=== PATIENT | female | born 1990 | race Caucasian/White ===

== ENCOUNTER 2023-05-15 13:48 | Day surgery (SDC) | payer MEDICAID ==
[2023-05-15 14:05] VITALS: O2SAT 100
[2023-05-15] MEDS ORDERED: SODIUM CHLORIDE 0.9% 1,000 ML IV STA ×2 (14:08→16:04)
[2023-05-15] MEDS ORDERED: ONDANSETRON 4 MG/2 ML VIAL IVP STA (14:08)
--- NOTE | 2023-05-15 14:12 | ED Physician Documentation ---
PD HPI NVD - Stated complaint Stated Complaint: VOMITING - Chief complaint Chief Complaint: Abd Pain - History obtained from History obtained from: Patient - Additonal information Additional information: Patient is a 33-year-old female who is approximately 10 weeks (last menses was in February) presenting for evaluation of nausea and vomiting which has been worse since this morning. Patient states she has had morning sickness and has prescribed Zofran and Unisom which has not been helping. However today her nausea and vomiting have been much worse and she has left lower quadrant pain. She just moved here and thus has not established care with OB yet. She did have some morning sickness with her first but states it was not this bad.Denies complications with first . She denies vaginal bleeding or cramping. Denies eating anything yesterday or today though does upset her stomach. No diarrhea. No blood in emesis. States that is been mostly foamy and dry heaving. Patient does endorse regular cannabis use. Denies having had other symptoms similar to this other than in the setting of . Review of Systems Constitutional: denies: Fever Cardiac: denies: Chest pain / pressure Respiratory: denies: Dyspnea GI: reports: Abdominal Pain, Nausea, Vomiting. denies: Diarrhea, Bloody / black stool : denies: Dysuria PD PAST MEDICAL HISTORY - Past Medical History Past Medical History: Yes Psych: Depression, Anxiety - Past Surgical History Past Surgical History: No - Present Medications Home Medications: Ambulatory Orders Medication Instructions Recorded Confirmed Sertraline [Zoloft] 25 mg PO DAILY 05/15/23 05/15/23 lamoTRIgine [LaMICtal] 200 mg PO DAILY 05/15/23 05/15/23 - Allergies Allergies/Adverse Reactions: Allergies Allergy/AdvReac Type Severity Reaction Status Date / Time sulfamethoxazole AdvReac Nausea Verified 05/15/23 13:57 [From Bactrim] trimethoprim [From Bactrim] AdvReac Nausea Verified 05/15/23 13:57 - Social History Does the pt smoke?: No Smoking Status: Never smoker PD ED PE NORMAL - General General: Alert and oriented X 3, No acute distress, Well developed/nourished - HEENT HEENT: Atraumatic, Moist mucous membranes, Pharynx benign - Neck Neck: Supple, no meningeal sign - Cardiac Cardiac: RRR, No murmur - Respiratory Respiratory: No respiratory distress, Clear bilaterally - Abdomen Abdomen: Normal bowel sounds, Soft, Non tender, Non distended - Derm Derm: Warm and dry - Extremities Extremities: No edema - Neuro Neuro: Normal speech Results - Vitals Vitals: Vital Signs - 24 hr 05/15/23 05/15/23 05/15/23 13:55 13:57 16:42 Temperature 36.6 C 36.6 C Heart Rate 66 66 52 L Respiratory 16 16 16 Rate Blood Pressure 95/61 95/61 123/49 L O2 Saturation 100 100 100 Oxygen O2 Source Room air - Labs Labs: Laboratory Tests 05/15/23 05/15/23 05/15/23 14:22 14:22 14:22 WBC 15.6 H RBC 4.24 Hgb 12.9 Hct 36.7 L MCV 86.6 MCH 30.4 MCHC 35.1 RDW 12.9 Plt Count 402 MPV 9.9 Neut # (Auto) 12.8 H Lymph # (Auto) 1.9 Ada # (Auto) 0.7 Eos # (Auto) 0.1 Baso # (Auto) 0.1 Absolute Nucleated RBC 0.00 Nucleated RBC % 0.0 Sodium 137 Potassium 3.5 Chloride 106 Carbon Dioxide 19 L Anion Gap 12.0 BUN 9 Creatinine 0.7 Estimated GFR (MDRD) 96 Glucose 131 H Calcium 10.5 H Total Bilirubin 0.4 AST 12 ALT 15 Alkaline Phosphatase 74 Total Protein 7.7 Albumin 4.6 Globulin 3.1 Albumin/Globulin Ratio 1.5 Lipase 15 Beta HCG, Quant Urine Color Urine Clarity Urine pH Ur Specific [place] Urine Protein Urine Glucose (UA) Urine Ketones Urine Occult Blood Urine Nitrite Urine Bilirubin Urine Urobilinogen Ur Leukocyte Esterase Urine RBC Urine WBC Ur Squamous Epith Cells Urine Bacteria Urine Mucus Ur Microscopic Review Urine Culture Comments Blood Type A POSITIVE 05/15/23 05/15/23 14:22 15:02 WBC RBC Hgb Hct MCV MCH MCHC RDW Plt Count MPV Neut # (Auto) Lymph # (Auto) Ada # (Auto) Eos # (Auto) Baso # (Auto) Absolute Nucleated RBC Nucleated RBC % Sodium Potassium Chloride Carbon Dioxide Anion Gap BUN Creatinine Estimated GFR (MDRD) Glucose Calcium Total Bilirubin AST ALT Alkaline Phosphatase Total Protein Albumin Globulin Albumin/Globulin Ratio Lipase Beta HCG, Quant 85165.3 Urine Color YELLOW Urine Clarity CLOUDY Urine pH 6.5 Ur Specific [place] 1.025 Urine Protein NEGATIVE Urine Glucose (UA) NEGATIVE Urine Ketones >=80 H Urine Occult Blood NEGATIVE Urine Nitrite NEGATIVE Urine Bilirubin NEGATIVE Urine Urobilinogen 0.2 (NORMAL) Ur Leukocyte Esterase TRACE H Urine RBC 0-5 Urine WBC 6-10 H Ur Squamous Epith Cells MANY Squamous H Urine Bacteria Moderate H Urine Mucus Moderate Strands Ur Microscopic Review INDICATED Urine Culture Comments NOT INDICATED Blood Type PD Medical Decision Making - ED course Complexity details: reviewed results, re-evaluated patient, d/w patient, d/w behavioral consultant ED course: 1545 - D/W Dr. Laureano. She will see pt in ER. 1549 - Patient states that the Zofran did help her a little bit but the nausea has come back. I did review the results of her work-up including concerns for that is not progressing as expected and that OB is coming to speak with her regarding evaluation and options for treatment. 1605 - Patient has been seen by OB. Plan to take to the OR for D&C. Requesting order for scopolamine patch for patient's nausea/vomiting. Patient is a 33-year-old female G2, P1 presenting for evaluation of nausea and vomiting. Believes she is approximately 10 weeks . Her abdominal exam is benign. Labs including CBC, chemistries, hCG and blood type were obtained and reviewed. Urine analysis is negative for infection. Electrolytes are within normal limits. Leukocytosis of 15. Ultrasound was obtained which shows a intrauterine gestational sac with crown-rump length of approximately 6 weeks 6 days which does not correlate with her estimation To be 10 weeks along. There is additionally no heartbeat which is concerning for a nonviable . I did consult with OB who is evaluated the patient and plans to take her to the OR for a D&C. Patient received IV fluids and IV Zofran. Having continued nausea so was also given IV Reglan and scopolamine patch was ordered per request of OB. Patient was taken to preop by the OR team. Departure - Departure Disposition: ED Transfer to [facility] Clinical Impression: Missed , Intractable vomiting with nausea Condition: Stable
[2023-05-15 14:32] LABS: BASOPHILS # (AUTO) 0.1 10^3/uL (0.0-0.1); BASOPHILS % (AUTO) 0.4 %; EOSINOPHILS # (AUTO) 0.1 10^3/uL (0.0-0.7); EOSINOPHILS % (AUTO) 0.7 %; HCT - HEMATOCRIT 36.7 % (37.0-47.0); HGB - HEMOGLOBIN 12.9 g/dL (12.0-16.0); LYMPHOCYTES # (AUTO) 1.9 10^3/uL (1.5-3.5); LYMPHOCYTES % (AUTO) 12.5 %; MEAN CORPUSCULAR HEMOGLOBIN 30.4 pg (27.0-31.0); MEAN CORPUSCULAR HGB CONC 35.1 g/dL (32.0-36.0); MEAN CORPUSCULAR VOLUME 86.6 fL (81.0-99.0); MEAN PLATELET VOLUME 9.9 fL (7.9-10.8); MONOCYTES # (AUTO) 0.7 10^3/uL (0.0-1.0); MONOCYTES % (AUTO) 4.2 %; NEUTROPHILS # (AUTO) 12.8 10^3/uL (1.5-6.6); NEUTROPHILS % (AUTO) 81.9 %; PLT - PLATELET COUNT 402 10^3/uL (130-450); RED BLOOD COUNT 4.24 10^6/uL (4.20-5.40); RED CELL DISTRIBUTION WIDTH 12.9 % (12.0-15.0); WHITE BLOOD COUNT 15.6 x10^3/uL (4.8-10.8)
[2023-05-15 14:45] LABS: ALBUMIN 4.6 g/dL (3.2-5.5); ALBUMIN/GLOBULIN RATIO 1.5 (1.0-2.2); BILIRUBIN,TOTAL 0.4 mg/dL (0.2-1.0); CALCIUM 10.5 mg/dL (8.5-10.3); CREATININE 0.7 mg/dL (0.6-1.3); POTASSIUM 3.5 mmol/L (3.5-4.5); TOTAL PROTEIN 7.7 g/dL (6.4-8.9)
[2023-05-15 15:27] LABS: BILIRUBIN,URINE NEGATIVE (NEGATIVE); GLUCOSE, URINE (UA) NEGATIVE (NEGATIVE); KETONES,URINE (UA) >=80 mg/dL (NEGATIVE); LEUKOCYTE ESTERASE, URINE TRACE (NEGATIVE); NITRITE,URINE NEGATIVE (NEGATIVE); OCCULT BLOOD,URINE NEGATIVE (NEGATIVE); PH,URINE 6.5 PH (5.0-7.5); PROTEIN,URINE NEGATIVE (NEGATIVE); UROBILINOGEN,URINE 0.2 (NORMAL) E.U./dL (NORMAL)
--- NOTE | 2023-05-15 15:27 | Ultrasound Report ---
PROCEDURE: OB First Trimester INDICATIONS: vomiting/LLQ pain OUTSIDE/PRIOR DATING DATA: Last menstrual period (LMP): 03/08/2023. LMP-based estimated date of delivery (YORDAN): 12/13/2023. First dating scan (date and location): Today's exam. Estimated date of delivery (YORDAN) from first dating scan: 01/02/2024. TECHNIQUE: Real-time scanning was performed of the fetus and maternal pelvic organs, with image documentation. COMPARISON: None. FINDINGS: Intrauterine gestational sac present. Embryo: Present, measuring 8.3 mm. Heart rate: Absent. Other: No perigestational fluid collection. Measurement variability in dating: +/- 4 weeks by LMP, +/- 7 days by mean sac diameter (use before 6 weeks gestation if crown-rump length not able to be measured), +/- 5 days by crown-rump length (6-12 weeks gestation). Maternal organs: Ovaries appear within normal limits. IMPRESSION: Findings diagnostic of failure, with a crown-rump length of 8.3 mm and no heart tones . Reviewed by: Shawn Reynolds on 05/15/2023 3:25 PM PDT Approved by: Shawn Reynolds on 05/15/2023 3:25 PM PDT Station ID: [id number]
[2023-05-15 15:32] LABS: CLARITY,URINE CLOUDY (CLEAR)
[2023-05-15 15:44] LABS: BACTERIA,URINE Moderate /HPF (None Seen); MUCUS,URINE Moderate Strands; RBC,URINE 0-5 /HPF (0-5); SQUAMOUS EPITHELIAL CELL,UR MANY Squamous (<= Few)
[2023-05-15] MEDS ORDERED: METOCLOPRAMIDE 10 MG/2 ML VIAL IVP STA (15:49)
[2023-05-15] MEDS ORDERED: BUPIVACAINE 0.25% PF 30 ML VIAL ONE (16:32)
[2023-05-15] MEDS ORDERED: DOXYCYCLINE INJ 100 MG in SODIUM CHLORIDE 0.9% MINIBAG 100 ML IV STA (16:45)
[2023-05-15] MEDS ORDERED: MIDAZOLAM 2 MG/2 ML VIAL ONE (16:48)
[2023-05-15] MEDS ORDERED: PROPOFOL 200 MG/20 ML VIAL IVP ONE (16:48)
[2023-05-15] MEDS ORDERED: fentaNYL 100 MCG/2 ML VIAL ONE (16:48)
[2023-05-15] MEDS ORDERED: SUCCINYLCHOLINE 200 MG/10 ML VIAL ONE (16:48)
[2023-05-15] MEDS ORDERED: metroNIDAZOLE 500 MG/100 ML 500 MG/100 ML BAG ONE (16:49)
[2023-05-15] MEDS ORDERED: DOXYCYCLINE 100 MG TABLET PO ONE (16:49)
[2023-05-15] MEDS ORDERED: SCOPOLAMINE PATCH TOP ONE (16:59)
[2023-05-15] MEDS ORDERED: SCOPOLAMINE PATCH TOP SCH (17:00)
[2023-05-15] MEDS ORDERED: DEXAMETHASONE 4 MG/ML VIAL ONE (17:10)
--- NOTE | 2023-05-15 17:10 | ANESTHESIA ---
Pre-Anesthesia VS, & Labs - Diagnosis missed AB - Procedure suction d&C Vital Signs: Temp Pulse Resp BP Pulse Ox O2 Flow Rate 36.6 C 52 L 16 123/49 L 100 05/15/23 13:57 05/15/23 16:42 05/15/23 16:42 05/15/23 16:42 05/15/23 16:42 Height: 5 ft 2 in Weight (kg): 72.575 kg Body Mass Index: 29.2 BMI Classification: Overweight - NPO Last Fluid Intake: 1400 Last Food Intake: 1100 - Is Patient ?: Yes (missed ab) - Lab Results Current Lab Results: Laboratory Tests 05/15/23 14:22: Beta HCG, Quant 69921.3 05/15/23 14:22: Sodium 137, Potassium 3.5, Chloride 106, Carbon Dioxide 19 L, Anion Gap 12.0, BUN 9, Creatinine 0.7, Estimated GFR (MDRD) 96, Glucose 131 H, Calcium 10.5 H, Total Bilirubin 0.4, AST 12, ALT 15, Alkaline Phosphatase 74, Total Protein 7.7, Albumin 4.6, Globulin 3.1, Albumin/Globulin Ratio 1.5, Lipase 15 05/15/23 14:22: WBC 15.6 H, RBC 4.24, Hgb 12.9, Hct 36.7 L, MCV 86.6, MCH 30.4, MCHC 35.1, RDW 12.9, Plt Count 402, MPV 9.9, Neut # (Auto) 12.8 H, Lymph # (Auto) 1.9, [place] # (Auto) 0.7, Eos # (Auto) 0.1, Baso # (Auto) 0.1, Absolute Nucleated RBC 0.00, Nucleated RBC % 0.0 05/15/23 14:22: Blood Type A POSITIVE Lab results reviewed: Yes Fish Bones: 05/15/23 14:22 05/15/23 14:22 Home Medications and Allergies Home Medications: Ambulatory Orders Sertraline [Zoloft] 25 mg PO DAILY 05/15/23 lamoTRIgine [LaMICtal] 200 mg PO DAILY 05/15/23 Active Medications Sodium Chloride (Normal Saline 0.9%) 1,000 mls @ 150 mls/hr IV .Q6H40M STA Stop: 05/15/23 22:43 Last Admin: 05/15/23 16:41 Dose: 150 mls/hr Doxycycline Hyclate 100 mg/ (Sodium Chloride) 100 mls @ 100 mls/hr IV ONCE STA Stop: 05/15/23 17:44 Scopolamine HBr (Scopolamine Patch) 1 patch TOP Q3D MOLLY Sertraline [Zoloft] 25 mg PO DAILY 05/15/23 lamoTRIgine [LaMICtal] 200 mg PO DAILY 05/15/23 Allergies/Adverse Reactions: Allergies Allergy/AdvReac Type Severity Reaction Status Date / Time sulfamethoxazole AdvReac Nausea Verified 05/15/23 13:57 [From Bactrim] trimethoprim [From Bactrim] AdvReac Nausea Verified 05/15/23 13:57 Anes History & Medical History - Anesthetic History Anesthesia Complications: reports: No previous complications Family history of Anesthesia Complications: Denies Family history of Malignant Hyperthermia: Denies - Medical History Cardiovascular: reports: None Pulmonary: reports: None Gastrointestinal: reports: Other (N/V--severe) Urinary: reports: None Neuro: reports: None Musculoskeletal: reports: None Endocrine/Autoimmune: reports: None Blood Disorders: reports: None Skin: reports: None Smoking Status: Never smoker Psychosocial: reports: Cannabis, Other (bipolar) History of Cancer?: No - Surgical History Gynecologic: reports: Other (lap salpingectomy for ectopic preg) Orthopedic: reports: Other (right wrist) Exam General: Alert, Oriented x3, Cooperative, No acute distress Dental: WNL Mouth Openin Fingerbreadth Neck Mobility: Normal Mallampati classification: II Thyromental Distance: 4-6 cm Respiratory: Lungs clear, Normal breath sounds, No respiratory distress, No accessory muscle use Mental/Cognitive Status: Alert/Oriented X3, Normal for patient Plan Anesthesia Type: General Consent for Procedure(s) Verified and Reviewed: Yes Code Status: Attempt Resuscitation ASA classification: 2-Mild systemic disease Is this case an emergency?: Yes
[2023-05-15] MEDS ORDERED: LACTATED RINGERS 700 ML IV ONE (17:20)
--- NOTE | 2023-05-15 17:23 | OPERATIVE REPORT ---
Operative Report - General Procedure Date: 05/15/23 Planned Procedure: Suction D&C of uterus for missed ab Pre-Op Diagnosis: missed ab Procedure Performed: suction D&C, remove cervical polyp - Procedure Note Primary Surgeon: Amy Laureano Secondary Surgeon: non Anesthesia Provider: Jennifer Patel CRNA Anesthesia Technique: General ET tube Pathology: POC, cervical polyp Estimated Blood Loss (mL): 30 Urine Output (mL): 0 Indications: missed ab on uls noted. 6w6d size. vomiting. Findings: uterus about 10 cm with significant mobility, some cystocele. POC obtained. cervical polyp at os removed. Complications: none - Other Other Information/Narrative: patient was consented. Options discussed, can wait, take medication or do pr ocedure now. she wanted to get done with her miscarriage and nausea. She signed consents. she was brought to OR where general ETT anesthesia was given. she was prepped and draped in normal fashion. time out done. Bimanual exam done. cervix examined. small polyp removed with ring forceps. cervix grasped wtih ring forceps. dilated to allow passage of 8 mm suction currete. this was placed and suction turned on to green zone. uterus emptied with 3 separate passes. no sharp curettage done as uterus felt empty. massage done. Uterus was junior well and not bleeding. Tissue examined and appeared c/w POC. she was awakened and brought to PACU.
[2023-05-15] MEDS ORDERED: HYDROmorphone 0.5 MG/0.5 ML SYRINGE IVP PRN (17:27)
[2023-05-15] MEDS ORDERED: MORPHINE 2 MG/ML CARPUJECT IVP PRN (17:27)
[2023-05-15] MEDS ORDERED: ATROPINE ABBOJECT 1 MG/10 ML SYRINGE IVP PRN (17:27)
[2023-05-15] MEDS ORDERED: NALOXONE 0.4 MG/ML VIAL IVP PRN (17:27)
[2023-05-15] MEDS ORDERED: ONDANSETRON 4 MG/2 ML VIAL IVP PRN (17:27)
[2023-05-15] MEDS ORDERED: fentaNYL 100 MCG/2 ML VIAL IVP PRN (17:27)
[2023-05-15] MEDS ORDERED: oxyCODONE 5 MG TABLET PO PRN (17:29)
--- NOTE | 2023-05-15 17:44 | ANESTHESIA POST OP EVALUATION ---
Anesthesia Post Eval - Post Anesthesia Eval Vitals: Last Vital Signs Temp 36.0 C L 05/15/23 17:20 Pulse 96 05/15/23 17:35 Resp 18 05/15/23 17:35 BP 124/72 05/15/23 17:35 Pulse Ox 100 05/15/23 17:35 O2 Flow Rate CV Function Including HR & BP: Stable Pain Control: Satisfactory Nausea & Vomiting: Negative Mental Status: Baseline Respiratory Status: Airway Patent Hydration Status: Satisfactory Anesthesia Complications: None
[2023-05-15] MEDS ORDERED: LACTATED RINGERS 1,000 ML IV SCH (18:00)
[2023-05-17 07:49] VITALS: BP 114/76
--- NOTE | 2023-05-17 10:02 | PROVIDER PROGRESS NOTE ---
Subjective - Prog Note Date Prog Note Date: 05/17/23 Prog Note Time: 09:58 - Subjective Subjective: TC from patient from home. D&C on Thursday afternoon, 2 days ago. still with significant n/v. not better. using some marijuana. tried zofran 4mg that she had yesterday evening with no relief. not able to sleep. unable to keep anything down. will send in phenergan pr and compazine po for her to try. recommend she call back if not better. discussed that phenergan will make her sleepy. she welcomes that. will have clinic call her to make f/u appt and establish care. she is not a patient in [place]. has not thought about post op control yet. [id number] last week and planning a trip to [place] for the . lots going on. Objective - Lab Results Fish Bones: 05/15/23 14:22 05/15/23 14:22
== END 2023-05-15 19:00 | disposition home or self-care (01) ==
LOC: ED 13:48 → SDS 16:10 → MS3 17:58 → SDS 23:59
PROVIDERS: ATTEND Obstetrics & Gynecology
PROC: 0UBC7ZZ Excision of Cervix, Via Natural or Artificial Opening (ICD-10-PCS; 2023-05-15)
PROC: 10D17Z9 Manual Extraction of Products of Conception, Retained, Via Natural or Artificial Opening (ICD-10-PCS; principal; 2023-05-15 16:30)
DX: O02.1 Missed abortion (principal); N84.1 Polyp of cervix uteri; N81.10 Cystocele, unspecified
CPT/HCPCS: 36415; 57500; 59820; 76801; 80053; 81001; 83690; 84702; 85025; 86900; 86901; 96374; 96375; 99285; J0330; J2765; J3490; J7120; 81003; 87086

== ENCOUNTER 2024-01-11 11:31 | Outpatient (CLI) | payer MEDICAID ==
--- NOTE | 2024-01-11 14:43 | XRAY Report ---
PROCEDURE: Hip w/Pelvis 2-3V LT INDICATIONS: LEFT HIP PAIN, LUMBAR PAIN TECHNIQUE: An AP view the pelvis and a frog-leg lateral view of the hip were acquired. COMPARISON: None. FINDINGS: Bones: No fractures or dislocations. No suspicious bony lesions. Mild bilateral hip degenerative ch ness.. Soft tissues: No suspicious soft tissue calcifications or masses. IMPRESSION: No acute bony abnormality. Mild bilateral hip degenerative change. Reviewed by: Beto Christiansen MD on 01/11/2024 2:42 PM PDT Approved by: Beto Christiansen MD on 01/11/2024 2:42 PM PDT Station ID: [id number]
== END 2024-01-11 11:32 | disposition home or self-care (01) ==
LOC: DI 11:31
PROVIDERS: ATTEND Nurse Practitioner
DX: M54.50 Low back pain, unspecified (principal); M16.0 Bilateral primary osteoarthritis of hip

== ENCOUNTER 2024-02-09 13:18 | Outpatient (CLI) | payer MEDICAID ==
--- NOTE | 2024-02-09 21:57 | MRI Report ---
Hip LT WO CLINICAL HISTORY: 33 years of age, Female, LEFT HIP PAIN. COMPARISON: None Technique: Multisequence, multiplanar MRI of the left hip was performed without contrast. IV CONTRAST: Not given FINDINGS: Labrum: Anterior superior labral tear. Ligaments: Unremarkable. Tendons: The left iliopsoas, adductor, and hamstring tendon is unremarkable. Mild peritendinitis of t he left gluteal minimus and medius. Osseous and cartilaginous structures: Normal bone marrow signal and normal morphology without evidenc e of dysplasia, edema, fracture, or avascular necrosis. No definite chondral thinning or irregularity . Sacroiliac joints and spine: Mild marrow edema of the left L5-S1 facet, favoring degenerative. The sa caron is intact. Bilateral sacroiliac joints are unremarkable. The right hip is well aligned. No acute fracture or dislocation of the right hip. Miscellaneous: 3.4 cm left ovarian cyst. IMPRESSION: 1.Anterior superior labral tear of the left hip. 2.Mild peritendinitis of the left gluteal minimus and medius. 3.3.4 cm left ovarian cyst. Recommend further evaluation with pelvic ultrasound. Reviewed by: Hailey Guzmán MD on 02/09/2024 9:56 PM PDT Approved by: Hailey Guzmán MD on 02/09/2024 9:56 PM PDT Station ID: [id number]
== END 2024-02-09 13:19 | disposition home or self-care (01) ==
LOC: DI 13:18
PROVIDERS: ATTEND Nurse Practitioner
DX: S73.102A Unspecified sprain of left hip, initial encounter (principal); M76.02 Gluteal tendinitis, left hip; N83.202 Unspecified ovarian cyst, left side